=== PATIENT | male | born 1985 | race Caucasian/White ===

== ENCOUNTER 2016-12-13 17:30 | Emergency (ER) | payer OTHER ==
[~2016-12-13] VITALS: Ht 177.8 cm; Wt 72.7 kg
[2016-12-13 17:41] VITALS: BP 135/87; PULSE 82; RESP 18; O2SAT 98
[2016-12-13 18:35] VITALS: BP 147/77; PULSE 78; RESP 14; O2SAT 99
--- NOTE | 2016-12-13 18:56 | DRSVH ---
PROCEDURE: X-RAY CHEST, TWO VIEWS ([id number]) INDICATIONS: subjective fevers, immunosuppressed TECHNIQUE: 2 views of the chest were acquired. COMPARISON: None. FINDINGS: Surgical changes and devices: Port-A-Cath in normal position from left-sided approach Lungs and pleura: No pleural effusions or pneumothorax. Lungs are clear. Mediastinum: Mediastinal contours are normal. Heart size is normal. Bones and chest wall: No suspicious bony abnormalities. Soft tissues appear unremarkable. IMPRESSION: Port-A-Cath in normal position from left-sided approach. No definite pneumonia found. Dictated by: Chance Patel M.D. on 12/13/2016 at 18:55 Approved by: Chance Patel M.D. on 12/13/2016 at 18:55
--- NOTE | 2016-12-13 19:07 | DRSVH ---
PROCEDURE: CT BRAIN WITHOUT CONTRAST ([id number]) INDICATIONS: altered mental status TECHNIQUE: Noncontrast 4.5 mm thick angled axial sections acquired from the foramen magnum to the vertex, with c oronal reformats. COMPARISON: None. FINDINGS: Image quality: Excellent. CSF spaces: Basal cisterns are patent. No extra-axial fluid collections. Ventricles are normal in size and shape. Brain: No midline shift. No intracranial masses or hemorrhage. Cobb-white matter interface is norm al. Skull and face: Calvarium and visualized facial bones are intact, without suspicious lesions. Sinuses: Visualized sinuses and mastoids are clear. IMPRESSION: Normal for age, source of current symptoms is not seen. Dictated by: Chance Patel M.D. on 12/13/2016 at 19:06 Approved by: Chance Patel M.D. on 12/13/2016 at 19:06
[2016-12-13] MEDS ORDERED: 0.9% Sodium Chloride 1,000 ML IV ONE (19:10)
[2016-12-13] MEDS ORDERED: Ondansetron 8 mg ODT Tablet ONE (19:13)
[2016-12-13] MEDS ORDERED: Ondansetron 8 mg ODT Tablet PO ONE (19:15)
[2016-12-13 19:18] LABS: BASOPHILS % (AUTO) 0.3 % (0-3); EOSINOPHILS % (AUTO) 3.7 % (0-5); MONOCYTES % (AUTO) 7.2 % (4-12); Mean Corpuscular Hemoglobin 28.8 pg (27.0-35.0); Mean Corpuscular Volume 86.2 fL (81-100); NEUTROPHILS % (AUTO) 53.5 % (40-74); Platelet Count 345 bil/L (150-400)
[2016-12-13] MEDS ORDERED: ProchlorPERazine 5 mg/mL 2 mL Inj IVPUSH ONE (20:35)
[2016-12-13] MEDS ORDERED: Ketorolac 15 mg/mL Inj IVPUSH ONE (20:35)
[2016-12-13 21:50] VITALS: BP 102/64; PULSE 70; RESP 18; O2SAT 97
[2016-12-13 23:04] VITALS: BP 102/65; PULSE 62; RESP 19
--- NOTE | 2016-12-14 00:45 | ED.REPORT ---
HPI-Altered Mental Status Date of Service Dec 13, 2016 ED Provider: Piyush Mays MD History of Present Illness: Mr. Omar Arnold is a pleasant 31 year old gentleman with past medical history significant for 7 year history of Crohn's disease, mild asthma, anxiety/depression, low back spasms, and a history of aseptic meningitis 3 years ago with lenthy hospital stay, who presents to the [facility] Emergency Department for recent disorientation with weakness, subjective fever, nausea, photophobia and headache and short retrograde amnesia. He was at the park in [place] with his and 2 children when he started to feel weak and disoriented. His drove him to the [facility] who subsequently transported him here by EMS. Of note he has been "hot for the past 2 1/2 days." He denies sick contacts, change in medications, drugs/etoh use, syncope, neck pain, chest pain, shortness of breath, numbness/paralysis/tingling anywhere, constipation. He reports this is the first time he felt this way. He has chronic diarrhea 2nd to Crohns. Nursing Notes Stated Complaint: MEMORY LOSS,HEADACHE Chief Complaint: Neuro Symptoms/ Deficits Nursing Notes Reviewed: Yes Allergies: Coded Allergies: No Known Allergies (Unverified , 12/13/16) General Time Seen by MD: 18:20 Chief Complaint Disoriented, Memory loss, Other (photophobia) Sudden in Onset?: Yes Review of Systems Review of Systems Note: A comprehensive review of systems was conducted with the patient and found to be negative except as above in the History of Present Illness. Complete sys rev & neg: except as marked. Physical Exam Physical Exam Notes: General: Adult gentleman lying in bed in no acute distress but visibly anxious, well-developed, well-nourished, appropriately interactive. HEENT: Normocephalic, atraumatic. External ears without defect. Pupils equal, round, and reactive to light and accommodation, photophobia present b/l with right > left. Visual cordova intact, no nystagmus, Anicteric sclerae, moist conjunctivae, and no lid lag. Oropharynx free of erythema and cobble stoning with moist mucosa. Neck: Supple with full range of motion. No jugular venous distension. No bruits. No lymphadenopathy or thyromegaly. Cardiovascular: Regular rate and rhythm with no murmurs, rubs, or gallops appreciated Pulmonary: Clear to auscultation bilaterally with no crackles, wheezes, or rhonchi. Normal respiratory effort with no use of accessory muscles. Abdomen: Bowel tones present. Soft, nontender, nondistended. No hepatosplenomegaly or masses appreciated. Extremities: No clubbing, cyanosis, edema, or lymphadenopathy appreciated. Skin: Normal temperature, turgor, and texture; no rash, ulcers, or subcutaneous nodules appreciated. Neurological: Cranial nerves grossly intact. Normal muscle strength, tone, and bulk. Reflexes, coordination, and sensory function within normal limits. No known gait impairment. Psychiatric: Normal mood and affect, anxious. Alert and oriented to person, place, and time, with deficit in recent memory 4 1/2 hours prior. Initial Vital Signs Vital Signs (First) Date Time Temp Pulse Resp B/P Pulse Ox O2 Delivery O2 Flow Rate FiO2 12/13/16 17:41 36.7 82 18 135/87 98 Room Air Interpretation & Diagnostics Lab Results Interpretation Result Diagram: 12/13/16 1906 12/13/16 1906 Test 12/13/16 19:06 12/13/16 21:05 12/14/16 00:45 White Blood Count 8.6th/mm3 (3.8-10.1) Red Blood Count 4.93mil/mm3 (4.40-5.80) Hemoglobin 14.2g/dL (13.8-17.2) Hematocrit 42.5% (41.0-50.0) Mean Corpuscular Volume 86.2fL (81-100) Mean Corpuscular Hemoglobin 28.8pg (27.0-35.0) Mean Corpuscular Hemoglobin Concent 33.4% (32.0-37.0) Red Cell Distribution Width 14.5% (12.3-15.4) Platelet Count 345bil/L (150-400) Neutrophils (%) (Auto) 53.5% (40-74) Lymphocytes (%) (Auto) 35.3% (14-46) Monocytes (%) (Auto) 7.2% (4-12) Eosinophils (%) (Auto) 3.7% (0-5) Basophils (%) (Auto) 0.3% (0-3) Sodium Level 140mEq/L (134-144) Potassium Level 4.2mEq/L (3.5-5.2) Chloride Level 102mEq/L (97-108) Carbon Dioxide Level 26mmol/L (18-29) Blood Urea Nitrogen 9mg/dL (6-20) Creatinine 1.00mg/dL (0.76-1.27) Estimat Glomerular Filtration Rate 93mL/min (>59) Glucose Level 92mg/dL (60-99) Calcium Level 9.3mg/dL (8.5-10.1) Total Bilirubin 0.2mg/dL (0.0-1.2) Aspartate Amino Transf (AST/SGOT) 30U/L (0-50) Alanine Aminotransferase (ALT/SGPT) 41U/L (0-44) Alkaline Phosphatase 63U/L (25-150) Total Protein 7.5g/dL (6.4-8.4) Albumin 4.4g/dL (3.4-5.0) Thyroid Stimulating Hormone (TSH) 0.788uIU/mL (0.450-4.500) Free Thyroxine 1.69ng/dL (0.82-1.77) Hold Britton Top Tube Received (Received) Urine Opiates Screen Negative Urine Methadone Screen Negative Urine Barbiturates Screen Negative Urine Amphetamines Screen Negative Urine Benzodiazepines Screen Positive Urine Cocaine Metabolite Screen Negative Urine Cannabinoids Screen Positive CSF Appearance Clear (CLEAR) CSF Color Colorless (COLORLESS) CSF WBC 2/mm3 (0-5) CSF RBC 18/mm3 CSF Mononuclear WBCs % CSF Polynuclear WBCs % CSF Other Cells CSF Glucose 54mg/dL (45-90) CSF Total Protein 40mg/dL (15-45) Procedures Procedure Notes: Multiple attempts at lumbar puncture. Informed consent was obtained from the patient. The area was prepped and draped in the usual sterile fashion. Using landmarks, a 22 guage spinal needle was inserted in first the L3-L4 innerspace when that was unsuccessfull the L4-L5 innerspace was attempted and failed to achieve CSF sample. Radiology was called to assist and 4cc of clear fluid was collected and sent for routine studies. CSF was also sent for HSV PCR. The patient tolerated the procedure well. There was no blood loss or hematoma or headache. Re-Eval/Medical Decision Med Decision/Clinical Course Mr. Arnold presented with retrograde amnesia, headache, and photophobia. A head CT w/out contrast was negative for intracranial hemorrhage or other acute abnormalities. Lab values were benign, with glucose within normal limits at 92 and serum electrolytes also within normal limits, and TSH/T4 are normal. His infectious markers are not elevated, and after some PO intake to raise blood glucose patients out of body feeling remains. He has experienced a siezure roughly 3 years ago during a severly dehydrated event. With history of aseptic meningitis and absence of discerning lab values we are aggressively pursuing possibility of meningitis and as such we plan on proceeding with a lumbar tap with cx. We pretreated with IV Compazine, Benadryl, and Toradol. DDX: Meningitis is unlikely with negative CSF studies, Stroke/TIA has been rulled out by PE and CT w/out contrast. Hypoglycemia is unlikely with normal glucose values. Patient did not experience a traumatic event so post concussive state is unlikely. Hypothyroid unlikely with normal lab values. seizure remains and migrain remain apart of the differential. Recommend follow up with primary care physician. Patient Discharge & Departure Shift Change Sign-Out Discussed Complaint(s): Yes Laboratory Evaluation: Lab evaluation discussed Imaging Studies: Imaging discussed Response to Therapy: Unchanged Impression: Primary Impression: Altered mental state Disposition: Home Discharge Condition All VS Reviewed: Yes Condition: Stable Additional Instructions: During you visit to [facility] Emergency Department we obtained blood work for infectious markers, hemoglobin levels, and electrolytes. We obtained high resolution imaging of your brain and chest and abdomen. All your lab values were within normal limits and your imaging showed no acute processes or abnormalities. We also performed a lumbar puncture and took a sample of your cerebral spinal fluid and the results are within normal limits. Do not hesitate to call emergency services or your primary care physician if you experience any of the following. - High unrelenting fevers. - Another episode of amnesia. - Uncontrolled vomiting. - Severe hypertension. - Syncope or loss of consciousness. - Chest pain or severe shortness of breath. Follow up with your primary care physician in 1-2 weeks time following your emergency department visit for medication checks and general well-being. Referrals: MARY ELLEN BRISENO MD (PCP) Attending Statement Seen and examined with Dr Ferreira on 12/13. Agree with above copies to: MARY ELLEN BRISENO MD, COREY P DO Dec 13, 2016 19:40 Piyush Mays MD Dec 15, 2016 06:06
[2016-12-14 00:51] VITALS: BP 104/57; PULSE 57; RESP 16; O2SAT 100
[2016-12-14 01:07] LABS: APPEARANCE,CSF CLEAR (CLEAR); COLOR,CSF COLORLESS (COLORLESS); WHITE BLOOD CELL,CSF 2 /mm3 (0-5)
[2016-12-14 01:51] VITALS: BP 108/62; PULSE 62; RESP 16; O2SAT 100
[2016-12-14] MEDS ORDERED: HepLOK Flush 100 unit/mL 5 mL Inj ONE (01:58)
--- NOTE | 2016-12-15 08:24 | DRSVH ---
PROCEDURE: X-RAY LUMBAR PUNCTURE ([id number]) INDICATIONS: immunosuppressed, OWENS TECHNIQUE: The indications, alternatives, benefits, risks, and complications were explained to the patient. Chantelle gregg informed consent was obtained and placed in the chart. The patient was placed in a prone positi on on the fluoroscopy table, and a level was chosen for percutaneous access under fluoroscopic guidan ce. The site was prepped and draped in a sterile fashion. After local anaesthetic, a spinal needle was then used to enter the intrathecal space, with return of cerebrospinal fluid. After obtaining sufficient fluid, the needle was then withdrawn, and a bandage applied to the punctur e site. FINDINGS: Puncture level: L3-L4 right interlaminar notch. Needle: Spinal needle. Opening pressure: 10 cm of water supine position from needle tip to the meniscus.. CSF volume and description: 4 separate aliquots were obtained for laboratory analysis at the directio n of the ordering emergency room physician. The fluid was clear and colorless. Medications: 1% lidocaine for anaesthesia. Complications: None Laboratories: As ordered by referring clinician. IMPRESSION: Successful fluoroscopically guided lumbar puncture. Dictated by: Chance Patel M.D. on 12/15/2016 at 8:23 Approved by: Chance Patel M.D. on 12/15/2016 at 8:23
== END 2016-12-14 02:05 | disposition home or self-care (01) ==
LOC: EDBD 17:30 → SED 17:30
DX: R41.82 Altered mental status, unspecified (principal); R53.1 Weakness; R50.9 Fever, unspecified; R11.0 Nausea; H53.149 Visual discomfort, unspecified; R51 Headache; R41.2 Retrograde amnesia; J45.909 Unspecified asthma, uncomplicated; K50.918 Crohn's disease, unspecified, with other complication; M62.830 Muscle spasm of back; Z86.61 Personal history of infections of the central nervous system
CPT/HCPCS: 36415; 62270; 70450; 71020; 77003; 80053; 82945; 82948; 84155; 84439; 84443; 85025; 87040; 87070; 87205; 89051; 96361; 96374; 96375; 99285; G0480; J0780; J1200; J1642; J1885; J7030